=== PATIENT | female | born 2000 | race Two or more races ===

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

== ENCOUNTER 2023-11-01 13:05 | Observation (INO) | payer MEDICAID ==
[2023-11-01] MEDS ORDERED: NITR-87 PO (14:03)
[2023-11-01] MEDS ORDERED: PREN-96 PO (14:04)
== END 2023-11-01 14:22 | disposition home or self-care (01) ==
LOC: UNDOADMOB 13:05 → LDRP 13:05
PROVIDERS: ADMIT Obstetrics & Gynecology; ATTEND Obstetrics & Gynecology
DX: O23.42 Unspecified infection of urinary tract in pregnancy, second trimester (principal); O26.892 Other specified pregnancy related conditions, second trimester; R10.30 Lower abdominal pain, unspecified; R31.9 Hematuria, unspecified; Z87.891 Personal history of nicotine dependence; Z3A.23 23 weeks gestation of pregnancy
CPT/HCPCS: 59025; 81002; 94760; G0378